=== PATIENT | female | born 1965 | race Caucasian/White ===

== ENCOUNTER → 2016-08-02 | Outpatient (REF) | payer OTHER | LOC: M SFHCLERA 16:08 | PROVIDERS: ATTEND Nurse Practitioner Family | DX: J02.9 Acute pharyngitis, unspecified (principal) ==

== ENCOUNTER → 2017-02-22 | Outpatient (REF) | payer OTHER ==
[2017-02-22 16:51] LABS: ANION GAP 7 MEQ/L (8-16); BLOOD UREA NITROGEN 12 MG/DL (7-18); CALCIUM LEVEL 8.5 MG/DL (8.5-10.1); CARBON DIOXIDE LEVEL 26 MEQ/L (21-32); CHLORIDE LEVEL 103 MEQ/L (98-107); CHOLESTEROL LEVEL 175 MG/DL (<200); GLOMERULAR FILTRATION RATE > 60.0 (>51); GLUCOSE, FASTING 99 MG/DL (70-105); SODIUM LEVEL 136 MEQ/L (136-145); TRIGLYCERIDES LEVEL 53 MG/DL (<150)
== END ==
LOC: M LABDRAW1 16:01
PROVIDERS: ATTEND Family Medicine
DX: Z00.00 Encounter for general adult medical examination without abnormal findings (principal)

== ENCOUNTER → 2017-02-22 | Outpatient (CLI) | payer OTHER ==
--- NOTE | 2017-02-27 19:39 | REPMRS ---
Patient History The patient states she has not had a clinical breast exam in over a year. Family history of breast cancer in mother at age 50 or over. Digital Woman Screen Mammo: February 22, 2017 - Exam #: [id number] Bilateral CC and MLO view(s) were taken. Technologist: Faustina Infante, Technologist Prior study comparison: 2009, digital bilateral screening mammo, performed at [facility]. 2007, digital bilateral screening mammo, performed at [facility]. FINDINGS: The breast tissue is heterogeneously dense. This may lower the sensitivity of mammography. There has been no change in the appearance of the mammogram from the prior studies. There is a moderate amount of residual fibroglandular tissue which is fairly symmetric. There is no interval development of dominant mass, architectural distortion, or clustered microcalcification typical of malignancy. There is a benign appearing intramammary node in the upper outer quadrant of the left breast. Scattered lymph nodes are seen in the right axilla. No significant changes when compared with prior studies. ASSESSMENT: BI-RADS/ACR category 2 mammogram. Benign finding(s). Recommendation Routine screening mammogram in 1 year (for women over age 40). This mammogram was interpreted with the aid of an FDA-approved computer-aided dectection system. A. Negative x-ray reports should not delay biopsy if a dominant or clinically suspicious mass is present. B. Four to eight percent of cancers are not identified by mammography. C. Adenosis and dense breast may obscure an underlying neoplasm. Electronically Signed By: Mario Michel MD 02/27/17 [id number]
== END ==
LOC: M WHC 13:33
PROVIDERS: ATTEND Family Medicine
DX: N63 Unspecified lump in breast (principal); Z80.3 Family history of malignant neoplasm of breast

== ENCOUNTER → 2017-02-22 | Outpatient (REF) | payer OTHER ==
[2017-02-22 16:56] LABS: FREE T4 1.22 NG/DL (0.76-1.46)
== END ==
LOC: M LABDRAW1 16:02
PROVIDERS: ATTEND Internal Medicine
DX: E05.00 Thyrotoxicosis with diffuse goiter without thyrotoxic crisis or storm (principal)

== ENCOUNTER → 2017-09-29 | Outpatient (CLI) | payer OTHER ==
[2017-09-29 20:27] LABS: FREE T4 1.88 NG/DL (0.76-1.46); THYROID STIMULATING HORMONE < 0.005 uIU/ML (0.358-3.740)
[2017-09-29 20:28] LABS: TOTAL 25(OH) VITAMIN D 14.6 NG/ML (30.0-100.0)
[2017-09-29 20:29] LABS: TOTAL T3 171.7 NG/DL (60.0-181.0)
== END ==
LOC: M LRY 14:56
DX: E05.00 Thyrotoxicosis with diffuse goiter without thyrotoxic crisis or storm (principal); E04.1 Nontoxic single thyroid nodule; E55.9 Vitamin D deficiency, unspecified
CPT/HCPCS: 84443

== ENCOUNTER → 2017-11-20 | Outpatient (REF) | payer OTHER ==
[2017-11-21 12:36] LABS: ALBUMIN 3.7 GM/DL (3.2-5.2); ALBUMIN/GLOBULIN RATIO 1.16 (1.00-1.93); ALKALINE PHOSPHATASE 83 U/L (45-117); ALT/SGPT 18 U/L (12-78); ANION GAP 6 MEQ/L (8-16); AST/SGOT 10 U/L (7-37); BILIRUBIN,TOTAL 0.2 MG/DL (0.2-1.0); BLOOD UREA NITROGEN 14 MG/DL (7-18); CALCIUM LEVEL 8.8 MG/DL (8.5-10.1); CARBON DIOXIDE LEVEL 29 MEQ/L (21-32); CHLORIDE LEVEL 108 MEQ/L (98-107); CREATININE FOR GFR 0.77 MG/DL (0.55-1.30); GLOMERULAR FILTRATION RATE > 60.0 (>51); GLUCOSE, FASTING 83 MG/DL (70-100); POTASSIUM SERUM 4.3 MEQ/L (3.5-5.1); SODIUM LEVEL 143 MEQ/L (136-145); TOTAL PROTEIN 6.9 GM/DL (6.4-8.2)
== END ==
LOC: M LABDRAWC 11-21 11:49
DX: E05.00 Thyrotoxicosis with diffuse goiter without thyrotoxic crisis or storm (principal)
CPT/HCPCS: 80053

== ENCOUNTER → 2017-11-27 | Outpatient (CLI) | payer OTHER | LOC: M LRY 15:18 | DX: E05.00 Thyrotoxicosis with diffuse goiter without thyrotoxic crisis or storm (principal) ==

== ENCOUNTER → 2017-11-28 | Outpatient (REF) | payer OTHER ==
[2017-11-28 16:58] LABS: ALBUMIN 4.1 GM/DL (3.2-5.2); ALBUMIN/GLOBULIN RATIO 1.21 (1.00-1.93); ALKALINE PHOSPHATASE 78 U/L (45-117); ALT/SGPT 23 U/L (12-78); ANION GAP 3 MEQ/L (8-16); AST/SGOT 9 U/L (7-37); BILIRUBIN,TOTAL 0.6 MG/DL (0.2-1.0); BLOOD UREA NITROGEN 14 MG/DL (7-18); CALCIUM LEVEL 9.1 MG/DL (8.5-10.1); CARBON DIOXIDE LEVEL 33 MEQ/L (21-32); CHLORIDE LEVEL 103 MEQ/L (98-107); GLOMERULAR FILTRATION RATE > 60.0 (>51); GLUCOSE, FASTING 86 MG/DL (70-100); POTASSIUM SERUM 4.7 MEQ/L (3.5-5.1); SODIUM LEVEL 139 MEQ/L (136-145); TOTAL PROTEIN 7.5 GM/DL (6.4-8.2)
== END ==
LOC: M LAB REF 16:39
DX: E05.00 Thyrotoxicosis with diffuse goiter without thyrotoxic crisis or storm (principal)

== ENCOUNTER → 2017-12-11 | Outpatient (REF) | payer OTHER ==
[2017-12-12 11:53] LABS: ALBUMIN 3.8 GM/DL (3.2-5.2); ALBUMIN/GLOBULIN RATIO 1.23 (1.00-1.93); ALKALINE PHOSPHATASE 71 U/L (45-117); ALT/SGPT 20 U/L (12-78); ANION GAP 7 MEQ/L (8-16); AST/SGOT 8 U/L (7-37); BILIRUBIN,TOTAL 0.5 MG/DL (0.2-1.0); BLOOD UREA NITROGEN 11 MG/DL (7-18); CALCIUM LEVEL 8.4 MG/DL (8.5-10.1); CARBON DIOXIDE LEVEL 30 MEQ/L (21-32); CHLORIDE LEVEL 106 MEQ/L (98-107); GLOMERULAR FILTRATION RATE > 60.0 (>51); GLUCOSE, FASTING 88 MG/DL (70-100); POTASSIUM SERUM 3.9 MEQ/L (3.5-5.1); SODIUM LEVEL 143 MEQ/L (136-145); TOTAL PROTEIN 6.9 GM/DL (6.4-8.2)
== END ==
LOC: M LABDRAWC 10:59
DX: E05.00 Thyrotoxicosis with diffuse goiter without thyrotoxic crisis or storm (principal)

== ENCOUNTER → 2017-12-18 | Outpatient (CLI) | payer OTHER ==
[2017-12-18 20:37] LABS: ALBUMIN/GLOBULIN RATIO 1.29 (1.00-1.93); ALKALINE PHOSPHATASE 76 U/L (45-117); ALT/SGPT 26 U/L (12-78); AST/SGOT 9 U/L (7-37); BILIRUBIN,DIRECT 0.1 MG/DL (0.0-0.2); BILIRUBIN,TOTAL 0.4 MG/DL (0.2-1.0); TOTAL PROTEIN 7.1 GM/DL (6.4-8.2)
== END ==
LOC: M LRY 15:51
DX: E05.90 Thyrotoxicosis, unspecified without thyrotoxic crisis or storm (principal)

== ENCOUNTER → 2018-01-16 | Outpatient (CLI) | payer OTHER ==
[2018-01-16 20:49] LABS: TOTAL 25(OH) VITAMIN D 21.9 NG/ML (30.0-100.0)
[2018-01-24 00:06] LABS: ARSENIC BLOOD 5 ug/L (2-23); GLUTATHIONE QT 255 ug/mL (176-323); LEAD BLOOD None Detected ug/dL (0-19); MERCURY BLOOD 2.2 ug/L (0.0-14.9)
[2018-01-24 00:06] LABS: ALUMINUM LEVEL None Detected ug/L (0-9)
== END ==
LOC: M LRY 15:33
DX: F43.12 Post-traumatic stress disorder, chronic (principal); E05.41 Thyrotoxicosis factitia with thyrotoxic crisis or storm; F31.2 Bipolar disorder, current episode manic severe with psychotic features
CPT/HCPCS: 83655

== ENCOUNTER → 2018-05-01 | Outpatient (CLI) | payer OTHER ==
[2018-05-01 18:24] LABS: FREE T3 2.9 PG/ML (2.2-4.0); FREE T4 1.01 NG/DL (0.76-1.46)
== END ==
LOC: M LAB 16:36
DX: E05.00 Thyrotoxicosis with diffuse goiter without thyrotoxic crisis or storm (principal)
CPT/HCPCS: 84443

== ENCOUNTER 2018-08-31 16:13 | Emergency (ER) | payer OTHER ==
[2018-08-31 16:59] LABS: BASO % 0.3 % (0.0-1.0); EOS # 0.2 10^3/uL (0.0-0.50); EOS % 1.8 % (0.0-3.0); HEMATOCRIT 39.1 % (36.0-47.0); HEMOGLOBIN 13.4 g/dl (12.0-15.5); LYMPH # 2.2 10^3/uL (1.5-4.5); LYMPH % 18.6 % (24.0-44.0); MEAN CORPUSCULAR HEMOGLOBIN 31.7 pg (27.0-33.0); MEAN CORPUSCULAR HGB CONC 34.3 g/dl (32.0-36.5); MEAN CORPUSCULAR VOLUME 92.4 fl (80.0-96.0); MONO % 8.7 % (0.0-5.0); NEUTROPHILS # 8.4 10^3/uL (1.8-7.7); NEUTROPHILS % 70.2 % (36.0-66.0); PLATELET COUNT, AUTOMATED 264 10^3/uL (150-450); RED BLOOD COUNT 4.23 10^6/uL (4.00-5.40)
[2018-08-31] MEDS ORDERED: METH25TAB PO (17:01)
[2018-08-31] MEDS ORDERED: LEXA1TAB PO (17:02)
[2018-08-31] MEDS ORDERED: IBUP-1022 PO (17:03)
--- NOTE | 2018-08-31 17:07 | REP ---
Clinical: Chest pain . Comparison: None . Findings: The mediastinum and cardiac silhouette are stable and within normal limits for portable technique. The lung jensen are clear without acute consolidation, effusion, or pneumothorax. Skeletal structures are intact. Impression: No acute cardiopulmonary process appreciated. Electronically Signed by Saad Gold MD 08/31/2018 05:00 P
[2018-08-31 17:25] LABS: ALBUMIN 3.9 GM/DL (3.2-5.2); ALT/SGPT 24 U/L (12-78); BILIRUBIN,DIRECT 0.1 MG/DL (0.0-0.2); BILIRUBIN,TOTAL 0.3 MG/DL (0.2-1.0); BLOOD UREA NITROGEN 15 MG/DL (7-18); CALCIUM LEVEL 8.6 MG/DL (8.5-10.1); CARBON DIOXIDE LEVEL 27 MEQ/L (21-32); CHLORIDE LEVEL 103 MEQ/L (98-107); CPK CREATINE PHOSPHOKINASE 56 U/L (26-192); CREATININE FOR GFR 0.79 MG/DL (0.55-1.30); FREE T4 0.94 NG/DL (0.76-1.46); GLOMERULAR FILTRATION RATE > 60.0 (>51); GLUCOSE, FASTING 100 MG/DL (70-100); MAGNESIUM LEVEL 2.3 MG/DL (1.8-2.4); MB/CK RELATIVE INDEX 2.14 (< OR =4); NT-PRO BNP 66 PG/ML (<125); PHOSPHORUS LEVEL 2.8 MG/DL (2.5-4.9); POTASSIUM SERUM 3.7 MEQ/L (3.5-5.1); SODIUM LEVEL 139 MEQ/L (136-145); TOTAL PROTEIN 6.7 GM/DL (6.4-8.2); TROPONIN I < 0.02 NG/ML (< 0.10)
[2018-08-31 17:28] LABS: INR 0.92; PROTHROMBIN TIME 12.5 SECONDS (12.1-14.4)
[2018-08-31 18:13] VITALS: BP 131/71
--- NOTE | 2018-09-01 08:44 | ECGEPIP ---
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
== END 2018-08-31 19:10 | disposition home or self-care (01) ==
LOC: M ED 16:13
DX: I49.3 Ventricular premature depolarization (principal); R00.2 Palpitations; E05.00 Thyrotoxicosis with diffuse goiter without thyrotoxic crisis or storm; E04.1 Nontoxic single thyroid nodule; Z79.899 Other long term (current) drug therapy

== ENCOUNTER → 2018-09-14 | Outpatient (CLI) | payer OTHER ==
[~2018-09-14] MED LIST: IBUP-1022 PO; LEXA1TAB PO; METH25TAB PO
[2018-09-14 20:49] LABS: FREE T4 0.89 NG/DL (0.76-1.46); THYROID STIMULATING HORMONE 2.92 uIU/ML (0.358-3.740)
[2018-09-14 20:53] LABS: TOTAL 25(OH) VITAMIN D 25.2 NG/ML (30.0-100.0)
== END ==
LOC: M LRY 16:15
PROVIDERS: ATTEND Internal Medicine
DX: E05.90 Thyrotoxicosis, unspecified without thyrotoxic crisis or storm (principal); E55.9 Vitamin D deficiency, unspecified

== ENCOUNTER 2018-10-11 14:26 | Inpatient (IN) | payer OTHER ==
[~2018-10-11] VITALS: Ht 165.1 cm; Wt 83.3 kg
[2018-10-11] MEDS ORDERED: RITU10VLL IV (14:42)
[2018-10-11] MEDS ORDERED: VITA200015 PO (14:42)
[2018-10-11 15:21] LABS: BASO % 0.2 % (0.0-1.0); EOS # 0.2 10^3/uL (0.0-0.50); EOS % 2.2 % (0.0-3.0); HEMATOCRIT 37.1 % (36.0-47.0); HEMOGLOBIN 12.7 g/dl (12.0-15.5); LYMPH # 1.4 10^3/uL (1.5-4.5); MEAN CORPUSCULAR HEMOGLOBIN 31.9 pg (27.0-33.0); MEAN CORPUSCULAR HGB CONC 34.2 g/dl (32.0-36.5); MEAN CORPUSCULAR VOLUME 93.2 fl (80.0-96.0); MONO # 0.9 10^3/uL (0.0-0.8); MONO % 8.6 % (0.0-5.0); NEUTROPHILS # 7.9 10^3/uL (1.8-7.7); NEUTROPHILS % 75.8 % (36.0-66.0); PLATELET COUNT, AUTOMATED 249 10^3/uL (150-450); RED BLOOD COUNT 3.98 10^6/uL (4.00-5.40); WHITE BLOOD COUNT 10.5 10^3/uL (4.0-10.0)
[2018-10-11 15:51] LABS: BLOOD UREA NITROGEN 16 MG/DL (7-18); CALCIUM LEVEL 8.2 MG/DL (8.5-10.1); CARBON DIOXIDE LEVEL 28 MEQ/L (21-32); CHLORIDE LEVEL 107 MEQ/L (98-107); CK-MB VALUE MASS < 1.0 NG/ML (<3.6); CPK CREATINE PHOSPHOKINASE 86 U/L (26-192); CREATININE FOR GFR 0.77 MG/DL (0.55-1.30); GLOMERULAR FILTRATION RATE > 60.0 (>51); GLUCOSE, FASTING 93 MG/DL (70-100); MB/CK RELATIVE INDEX 1.16 (< OR =4); POTASSIUM SERUM 4.1 MEQ/L (3.5-5.1); SODIUM LEVEL 140 MEQ/L (136-145); TROPONIN I < 0.02 NG/ML (< 0.10)
[2018-10-11] MEDS ORDERED: ISOVUE-370 76% 125ML VIAL (Q9967 PER ML) As Ordered ONE (15:56)
--- NOTE | 2018-10-11 16:19 | REP ---
CT Head without contrast HISTORY: Loss of consciousness COMPARISON: None There is no intraparenchymal hemorrhage, acute infarct, mass or midline shift. The ventricular system is normal in appearance. There is no extra cerebral collection. There is no fracture. The visualized sinuses are clear. IMPRESSION: There is no intracranial lesion. Electronically Signed by Emilio Santamaria MD 10/11/2018 04:09 P
[2018-10-11] MEDS ORDERED: ACETAMINOPHEN 325 MG TAB PO ONE (16:30)
--- NOTE | 2018-10-11 18:13 | REPVR ---
EXAM: CT Angiography Head With Contrast EXAM DATE/TIME: 10/11/2018 4:02 PM CLINICAL HISTORY: 53 years old, female; Signs and symptoms; Visual disturbance and other: Loss of consciousness; Diplopia; Additional info: Prolonged loss of consciousness, witnessed, dbl vision TECHNIQUE: Axial computed tomographic angiography images of the head with intravenous contrast using CT angiography protocol. MIP and/or 3D reconstructed images were created and reviewed. COMPARISON: Thyroid, ST head+neck US 03/21/2016 12:44 PM FINDINGS: Right internal carotid artery: Unremarkable. Intracranial segment is patent with no significant stenosis. No aneurysm. Right anterior cerebral artery: Unremarkable. No occlusion or significant stenosis. No aneurysm. Right middle cerebral artery: Unremarkable. No occlusion or significant stenosis. No aneurysm. Right posterior cerebral artery: Unremarkable. No occlusion or significant stenosis. No aneurysm. Right vertebral artery: Unremarkable. No occlusion or significant stenosis. No aneurysm. Left internal carotid artery: Unremarkable. Intracranial segment is patent with no significant stenosis. No aneurysm. Left anterior cerebral artery: Unremarkable. No occlusion or significant stenosis. No aneurysm. Left middle cerebral artery: Unremarkable. No occlusion or significant stenosis. No aneurysm. Left posterior cerebral artery: Unremarkable. No occlusion or significant stenosis. No aneurysm. Left vertebral artery: Unremarkable. No occlusion or significant stenosis. No aneurysm. Basilar artery: Unremarkable. No occlusion or significant stenosis. No aneurysm. Orbits: There is a bilateral proptosis, left greater than right. There is enlargement noted of the extra ocular muscles within both orbits. On the left, there is enlargement of the superior rectus, superior oblique, medial and inferior rectus muscles. Inflammatory changes are noted of the fat surrounding the muscles and including the tendons. On the right there is enlargement of the lateral rectus muscle and medius rectus muscles. There is inflammatory stranding noted within the intraconal retrobulbar fat bilaterally. No evidence of cavernous carotid fistula. IMPRESSION: 1. Normal CTA of the [place]. 2. Normal CT of the vertebrobasilar system. 3. Enlargement of extraocular muscles in both orbits as described above with associated inflammatory change and involvement of the tendinous junctions. Differential diagnostic considerations include orbital myositis/idiopathic orbital inflammatory syndrome and lymphoma. Ophthalmopathy associated with graves disease typically spares the tendons of the extra ocular muscles.Clinical correlation suggested. EXAM: CT Angiography Neck With Contrast EXAM DATE/TIME: 10/11/2018 4:02 PM CLINICAL HISTORY: 53 years old, female; Signs and symptoms; Visual disturbance and other: Loss of consciousness; Diplopia; Additional info: Prolonged loss of consciousness, witnessed, dbl vision TECHNIQUE: Axial computed tomographic angiography images of the neck with intravenous contrast using CT angiography protocol. All CT scans at this facility use at least one of these dose optimization techniques: automated exposure control; mA and/or kV adjustment per patient size (includes targeted exams where dose is matched to clinical indication); or iterative reconstruction. Coronal and sagittal reformatted images were created and reviewed. MIP and 3D reconstructed images were created and reviewed. CONTRAST: Contrast Material: 100 ml of isovue 370; Contrast Route: iv COMPARISON: Thyroid, ST head+neck US 03/21/2016 12:44 PM FINDINGS: VASCULATURE: Right common carotid artery: Normal. No significant stenosis. No dissection or occlusion. Right internal carotid artery: Minimal soft plaque formation within the right proximal internal carotid artery. Right external carotid artery: Normal. No occlusion or significant stenosis. Right vertebral artery: Normal. No significant stenosis. No dissection or occlusion. Left common carotid artery: Normal. No significant stenosis. No dissection or occlusion. Left internal carotid artery: Minimal soft plaque formation in the left proximal internal carotid artery. Left external carotid artery: Normal. No occlusion or significant stenosis. Left vertebral artery: Normal. No significant stenosis. No dissection or occlusion. Other vasculature: No stenosis. No stenosis. NECK: Bones/joints: No acute fracture. Soft tissues: Normal. No significant soft tissue swelling. IMPRESSION: 1. Minimal plaque formation in the cervical carotid arteries. No stenosis. 2. Normal CTA of the vertebral arteries. 3. Reference per NASCET criteria for degree of stenosis: Mild: less than 50% stenosis. Moderate: 50-69% stenosis. Severe: 70-94% stenosis. Near occlusion: 95-99% stenosis. COMMENT: Reference per NASCET criteria for degree of stenosis: Mild: less than 50% stenosis. Moderate: 50-69% stenosis. Severe: 70-94% stenosis. Near occlusion: 95-99% stenosis. Electronically signed by: Pat Knapp On 10/11/2018 18:12:49 PM
[2018-10-11] MEDS ORDERED: IBUPROFEN 600 MG TAB PO ONE (18:30)
--- NOTE | 2018-10-11 19:25 | ECGEPIP ---
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
[2018-10-11] MEDS ORDERED: NS 1,000 ML IV SCH (20:16)
[2018-10-11 20:29] LABS: MAGNESIUM LEVEL 2.3 MG/DL (1.8-2.4)
[2018-10-11] MEDS ORDERED: RITUXIMAB IV SCH (20:30)
[2018-10-11] MEDS ORDERED: PILL CRUSHER/CUTTER 1 EACH XX PRN (20:30)
[2018-10-11 21:55] LABS: APPEARANCE, URINE CLEAR (CLEAR); BACTERIA, URINE AUTO NEGATIVE (NEGATIVE); BILIRUBIN, URINE AUTO NEGATIVE (NEGATIVE); BLOOD, URINE BLOOD 2+ (NEGATIVE); COLOR, URINE YELLOW (YELLOW); GLUCOSE, URINE (UA) AUTO NEGATIVE (NEGATIVE); KETONE, URINE AUTO NEGATIVE (NEGATIVE); LEUKOCYTE ESTERASE, URINE AUTO NEGATIVE (NEGATIVE); NITRITE, URINE AUTO NEGATIVE (NEGATIVE); PROTEIN, URINE AUTO NEGATIVE (NEGATIVE); RBC, URINE AUTO 2 /HPF (0-3); SQUAMOUS EPITHELIAL CELL UR AU 2 /HPF (0-6); UROBILINOGEN, URINE AUTO 0.2 mg/dL (0.0-2.0); WBC, URINE AUTO 2 /HPF (0-3)
[2018-10-11 21:56] LABS: SPECIFIC GRAVITY URINE AUTO >1.060 (1.002-1.035)
--- NOTE | 2018-10-11 22:12 | HPE ---
DATE OF ADMISSION: 10/11/2018 CHIEF COMPLAINT: Syncopal episode. HISTORY OF PRESENT ILLNESS: The patient is a 53-year-old female significant past medical history of Grave's disease with severe exophthalmos, recently finished steroid therapy and Rituxan for the exophthalmos, seeing a surgeon for possible surgery. She follows with [facility] in [place]. She also has a history of depression, anxiety. 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 Patient stated that she initially felt dizzy. She sat down, when she got up again she had a syncopal episode which was caught on camera. As per her account, she was out for 15 minutes. No jerky type movements. No tongue biting. No urinary incontinence. She denies any chest pain, palpitations or shortness of breath prior to the event. She did feel dizzy, not hypoglycemic. She was hydrated throughout the day. Denies any cough, urinary symptoms, abdominal pain, constipation or diarrhea. Exophthalmos very pronounced during the examination. She has no focal neurological deficits. No weakness, numbness or paresthesias. PAST MEDICAL HISTORY: See HPI. PAST SURGICAL HISTORY: Ankle surgery. ALLERGIES: No known drug allergies. HOME MEDICATIONS: - methimazole - Rituxan infusion - Effexor SOCIAL HISTORY: She denies tobacco, alcohol or illicit drug use. FAMILY HISTORY: Noncontributory REVIEW OF SYSTEMS: A 12 point review of systems was completed all of which were negative except those listed in the HPI. VITALS ON ADMISSION: Temperature 98, pulse 64, respirations 20, blood pressure 127/65, saturating at 99% on room air. PHYSICAL EXAMINATION: GENERAL: She is well-nourished, in no apparent distress. HEAD: Normocephalic, atraumatic. EYES: Extraocular movements are intact. She has profound exophthalmos. LUNGS: Clear to auscultation. No crackles, wheezes, rales or rhonchi. CARDIOVASCULAR: Regular rate and rhythm, normal S1, S2. No murmurs, gallops or rubs. ABDOMEN: Soft, nontender, nondistended. Positive bowel sounds. No rebound, no guarding. EXTREMITIES: No pitting edema or calf tenderness. SKIN: Intact. No rashes, lesions or breakdowns. NEUROLOGICAL: Alert and oriented times three. No focal deficits appreciated on exam. LABS DONE IN THE ER: White count 10, hemoglobin and hematocrit 12/37, platelet count of 249. Coags: D-dimer 46. Chemistry: BUN and creatinine of 16/0.7. Troponins are negative. TSH within normal limits. Potassium within normal limits. IMAGING COMPLETED IN THE ER: CT of the neck shows bilateral proptosis, left greater than right. On the left there is enlargement of the superior rectus, the superior oblique, medial and inferior rectus muscles. Inflammatory changes are noted on the fat surrounding the muscles including the tendons. On the right there is enlargement of the lateral rectus muscle and medius rectus muscles. There is inflammatory stranding noted within the intraconal retrobulbar fat bilaterally. No evidence of cavernous carotid fistula. Normal CT of the [place]. Normal CT of the vertebrobasilar system. CT head noncontrast shows no intracranial lesion. ASSESSMENT AND PLAN: 1. Syncope. CT of the neck already ruled out vertebrobasilar insufficiency. Will rule out structural heart disease with an echo. Will trend troponins and EKGs to rule out ACS. Will keep on telemetry to rule out arhythmia. Will check all electrolytes. Will check orthostatics, this is all possibly secondary to vasovagal. Unclear if this has something to do with the profound exophthalmos. Can consider endocrine consult. Patient was recently being seen by Dr. Brice for symptoms of bradycardia, heart rate in the 40s with dizziness. Her methimazole was subsequently decreased after this. She had to Holter monitor for [address] Brice in the a.m. for potential results of this Holter monitor. 2. For Graves disease, continue methimazole, TSH within normal limits. Will also send a free T4. 3. Depression. Continue Effexor. 4. DVT prophylaxis. Heparin subcutaneous. 5. GI prophylaxis. Not indicated. Diet: Regular.
[2018-10-12] MEDS ORDERED: MECLIZINE 12.5 MG TAB PO ONE (01:00)
[2018-10-12 05:55] LABS: HEMATOCRIT 37.3 % (36.0-47.0); HEMOGLOBIN 12.3 g/dl (12.0-15.5); MEAN CORPUSCULAR HEMOGLOBIN 30.8 pg (27.0-33.0); MEAN CORPUSCULAR VOLUME 93.3 fl (80.0-96.0); PLATELET COUNT, AUTOMATED 247 10^3/uL (150-450); WHITE BLOOD COUNT 8.7 10^3/uL (4.0-10.0)
[2018-10-12] MEDS ORDERED: IBUPROFEN 600 MG TAB PO ONE (06:00)
[2018-10-12] MEDS ORDERED: HEPARIN SOD (PORCINE) 5000 UNITS/ML VIAL SC SCH (06:00)
[2018-10-12 06:16] LABS: BLOOD UREA NITROGEN 17 MG/DL (7-18); CALCIUM LEVEL 7.5 MG/DL (8.5-10.1); CARBON DIOXIDE LEVEL 25 MEQ/L (21-32); CHLORIDE LEVEL 112 MEQ/L (98-107); GLOMERULAR FILTRATION RATE > 60.0 (>51); GLUCOSE, FASTING 95 MG/DL (70-100); SODIUM LEVEL 142 MEQ/L (136-145)
[2018-10-12 06:25] LABS: TROPONIN I < 0.02 NG/ML (< 0.10)
--- NOTE | 2018-10-12 07:53 | REPVR ---
EXAM: CT Angiography Head With Contrast EXAM DATE/TIME: 10/11/2018 4:02 PM CLINICAL HISTORY: 53 years old, female; Signs and symptoms; Visual disturbance and other: Loss of consciousness; Diplopia; Additional info: Prolonged loss of consciousness, witnessed, dbl vision TECHNIQUE: Axial computed tomographic angiography images of the head with intravenous contrast using CT angiography protocol. All CT scans at this facility use at least one of these dose optimization techniques: automated exposure control; mA and/or kV adjustment per patient size (includes targeted exams where dose is matched to clinical indication); or iterative reconstruction. Coronal and sagittal reformatted images were created and reviewed. MIP and 3D reconstructed images were created and reviewed. CONTRAST: Contrast Material: 100 ml of isovue 370; Contrast Route: iv COMPARISON: Thyroid, ST head+neck US 03/21/2016 12:44 PM FINDINGS: Right internal carotid artery: Unremarkable. Intracranial segment is patent with no significant stenosis. No aneurysm. Right anterior cerebral artery: Unremarkable. No occlusion or significant stenosis. No aneurysm. Right middle cerebral artery: Unremarkable. No occlusion or significant stenosis. No aneurysm. Right posterior cerebral artery: Unremarkable. No occlusion or significant stenosis. No aneurysm. Right vertebral artery: Unremarkable. No occlusion or significant stenosis. No aneurysm. Left internal carotid artery: Unremarkable. Intracranial segment is patent with no significant stenosis. No aneurysm. Left anterior cerebral artery: Unremarkable. No occlusion or significant stenosis. No aneurysm. Left middle cerebral artery: Unremarkable. No occlusion or significant stenosis. No aneurysm. Left posterior cerebral artery: Unremarkable. No occlusion or significant stenosis. No aneurysm. Left vertebral artery: Unremarkable. No occlusion or significant stenosis. No aneurysm. Basilar artery: Unremarkable. No occlusion or significant stenosis. No aneurysm. HEAD: Orbits: There is bilateral proptosis. There is significant thickening of the inferior medial and superior rectus muscles on the left and significant thickening of the inferior and superior rectus muscle on the right. IMPRESSION: 1. No appreciable disease seen in the intracerebral circulation. 2. Bilateral proptosis and diffuse enlargement of the extraocular muscle. The differential diagnoses include ophthalmopathy associated with Graves' disease, myositis and infiltrative process such as lymphoma. Correlate clinically Electronically signed by: Isidro Aburto On 10/12/2018 07:53:03 AM
[2018-10-12] MEDS: VITAMIN D 1,000 INTERNATIONAL UNITS TABLET PO SCH (08:59)
[2018-10-12 09:00] VITALS: BP_SYST 112; BP_SYST 132; BP_SYST 137; BP_DIAS 68; BP_DIAS 73; BP_DIAS 81
[2018-10-12] MEDS: ESCITALOPRAM OXALATE 10 MG TAB (LEXAPRO) PO SCH (09:00)
[2018-10-12] MEDS ORDERED: LORazepam 2 MG/ML VIAL (J2060) IV STA (12:46)
[2018-10-12 16:05] VITALS: BP 128/82
--- NOTE | 2018-10-12 17:15 | REP ---
MR BRAIN WITHOUT CONTRAST: HISTORY: Syncope. COMPARISON: CT 10/11/2018 There are no areas of abnormal signal intensity in the brain. There is no intraparenchymal hemorrhage, infarct, mass or midline shift. The ventricular system is normal in appearance. There is no extracerebral collection. This enlargement of the bellies of several extraocular muscles in the orbits. The sinuses are clear. IMPRESSION:1. There is no intracranial lesion. 2. There is enlargement of the bellies of several extraocular muscles in the orbits. CT or MR of the orbits may be helpful for further evaluation. Electronically Signed by Emilio Santamaria MD 10/12/2018 05:26 P
[2018-10-12] MEDS: MECLIZINE 25 MG TABLET PO PRN (18:21)
[2018-10-12] MEDS: IBUPROFEN 600 MG TAB PO PRN (18:22)
--- NOTE | 2018-10-12 19:28 | IPN ---
DATE: 10/12/2018 SUBJECTIVE: The patient is seen and examined in the room today. The patient stated that prior to admission she had some dizziness. 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 The patient stated that her dizziness occurs during rest, is not exacerbated or triggered by any type of head movements. The patient does not really know what makes the dizziness worse or better. The patient is also involved with a specialist in [place] for her Grave's disease with severe exophthalmus. The patient had scheduled surgery on 10/16/2018 for eyelid repair. The patient stated that she feels significant pressure and discomfort behind the left eye. The patient does have a history of cardiac arrhythmia that occurred after her infusion in outpatient setting. That was the reason the patient was placed on a Holter monitor. This morning, while the patient was getting ready for the MRI scan, the patient could not tolerate it due to claustrophobia. Ativan was given to the patient and the patient stated that the medication has helped her significantly. She could tolerate the scan. PHYSICAL EXAMINATION: VITAL SIGNS: Temperature 97.9, pulse 70, respirations 16, blood pressure 110/60, pulse oximetry 96% on room air. GENERAL: Mild distress secondary to persistent eye discomfort, most significant on the left side. Alert, awake, oriented. HEENT: Severe exophthalmus, especially the left eye. Tenderness to palpation around the eyelid. CARDIOVASCULAR: Regular rate. Positive S1, S2. ABDOMEN: Soft, nontender, nondistended. Bowel sounds present. EXTREMITIES: No edema. LABORATORY DATA: WBC 8.7, hemoglobin 12.3, hematocrit 37.3, platelet count is 247. Sodium is 142, potassium 4, chloride 112, carbon dioxide 25, BUN 17, creatinine 0.7, GFR greater than 60, fasting glucose 95, calcium is 7.5. IMAGING STUDIES: MRI of the brain without contrast demonstrated no intracranial lesion, enlargement of the belly of several extraocular muscles in the orbits. ASSESSMENT AND PLAN: 1. Syncope. The patient will continue with syncope workup. The patient had an echocardiogram approximately [address] Brice's office and I have discussed the findings with Dr. Brice. The patient did not demonstrate any significant abnormality from the echocardiogram. The patient also had a Holter monitor that detected intermittent premature ventricular contractions (PVCs). There is no significant cardiac arrhythmia noted. The patient is not orthostatic. The patient's medications were reviewed. Trial of meclizine. Followup with physical therapy (PT). 2. Grave's disease with severe exophthalmus. The patient is currently on methimazole in a reduced dose. The patient does have a history of significant bradycardia when the patient is on the medication. Continue to monitor the patient. The patient has a followup with party director, mammography technologist, and also surgeon in [place] for her Grave's disease. The patient has scheduled reconstruction surgery on 10/16/2018. Due to the significant symptoms of bilateral eyes, especially the left worse than the right, sorter operator, Dr. Baca, consulted. We will try to get in touch with the patient's reconstructive surgeon, Dr. Torres, in [place]. Office number is [phone]. At baseline, the patient is getting Rituxan. The patient receives that medication once monthly. The patient received a dose approximately 1 week ago. 3. Anxiety/depression. Continue Lexapro. 4. Deep vein thrombosis (DVT) prophylaxis. On knee high compressions.
[2018-10-12] MEDS ORDERED: traMADol 50 MG TAB PO ONE (21:00)
[2018-10-12 22:00] VITALS: BP 120/63
[2018-10-13] MEDS: IBUPROFEN 600 MG TAB PO PRN (05:36)
[2018-10-13 06:00] VITALS: BP 102/60
[2018-10-13] MEDS: MECLIZINE 25 MG TABLET PO PRN (06:08)
[2018-10-13 06:57] LABS: HEMATOCRIT 36.2 % (36.0-47.0); HEMOGLOBIN 12.3 g/dl (12.0-15.5); MEAN CORPUSCULAR HEMOGLOBIN 31.5 pg (27.0-33.0); MEAN CORPUSCULAR VOLUME 92.6 fl (80.0-96.0); PLATELET COUNT, AUTOMATED 248 10^3/uL (150-450); RED BLOOD COUNT 3.91 10^6/uL (4.00-5.40); WHITE BLOOD COUNT 7.1 10^3/uL (4.0-10.0)
[2018-10-13 07:25] LABS: BLOOD UREA NITROGEN 17 MG/DL (7-18); CALCIUM LEVEL 7.9 MG/DL (8.5-10.1); CARBON DIOXIDE LEVEL 27 MEQ/L (21-32); CHLORIDE LEVEL 109 MEQ/L (98-107); CREATININE FOR GFR 0.75 MG/DL (0.55-1.30); GLOMERULAR FILTRATION RATE > 60.0 (>51); GLUCOSE, FASTING 87 MG/DL (70-100); POTASSIUM SERUM 4.3 MEQ/L (3.5-5.1); SODIUM LEVEL 141 MEQ/L (136-145)
[2018-10-13] MEDS ORDERED: TRAZ-160 PO (10:20)
[2018-10-13] MEDS ORDERED: MECL-68 PO ×2 (10:20→10:25)
[2018-10-13] MEDS ORDERED: IBUP-1022 PO ×2 (10:20→10:25)
[2018-10-13] MEDS ORDERED: TRAM50TA2 PO (10:25)
[2018-10-13] MEDS: ESCITALOPRAM OXALATE 10 MG TAB (LEXAPRO) PO SCH (10:31)
[2018-10-13] MEDS: VITAMIN D 1,000 INTERNATIONAL UNITS TABLET PO SCH (10:31)
[2018-10-13] MEDS ORDERED: LORazepam 2 MG/ML VIAL (J2060) IV ONE (11:00)
[2018-10-13] MEDS ORDERED: PROHANCE 279.3MG/ML 15ML VIAL (A9576) As Ordered ONE (12:17)
[2018-10-13] MEDS ORDERED: PROHANCE 279.3MG/ML 5ML VIAL (A9576) As Ordered ONE (12:17)
--- NOTE | 2018-10-13 13:29 | ECGEPIP ---
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
[2018-10-13 14:00] VITALS: BP 117/68
--- NOTE | 2018-10-13 15:01 | REP ---
MR ORBITS WITHOUT AND WITH CONTRAST: HISTORY: Enlarged extraocular muscles. CONTRAST: ProHance 15 mL. There is enlargement of the bellies of the superior, medial, inferior, and lateral rectus muscles and the left superior oblique muscle. There is heterogenous enhancement of the left medial rectus muscle. There is minimal compression of the left optic nerve in the left orbital apex. The right optic nerve is normal in appearance. There is bilateral proptosis. There is an increase in the amount of intraorbital fat. The pituitary gland, optic chiasm, cavernous sinuses and hypothalamus are normal in appearance. The visualized sinuses are clear. 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 Electronically Signed by Emilio Santamaria MD 10/13/2018 03:07 P
--- NOTE | 2018-10-15 06:54 | DSES ---
DATE OF ADMISSION: 10/11/2018 DATE OF DISCHARGE: 10/13/2018 PRIMARY CARE PROVIDER: Lucia Ochoa MD CONSULTANTS: Ophthalmology. DISCHARGE DIAGNOSES: 1. Syncope. 2. Graves disease with severe exophthalmos. 3. Anxiety/depression. HOSPITALIZATION COURSE: The patient is a 53-year-old female who presented to [facility] on 10/11/2018 after a syncopal episode. Syncopal episode was recorded on the school camera. After the syncopal episode, emergency medical service (EMS) was called and patient was brought to [facility] for a syncope workup. Patient admitted under hospitalist service. Immediate diagnostic workup initiated. Patient had a recent Holter monitor placement by her integration developer, and Dr. Brice is contacted with regard to her outpatient echocardiogram and Holter monitor. The results were negative. Holter monitor was removed before the syncopal episode. Echocardiogram was normal. All of patient's orthostatics were negative. Patient had a CT scan and MRI performed. Findings were significant for her extraocular muscle abnormality from her Graves disease. During the admission, patient presented significant extraocular motor abnormality from her Graves disease. Driver'S Education Instructor consulted. Patient was noted to have no event noted on the cardiac telemetry. Patient was evaluated by physical therapy, and patient is determined stable for discharge and case was discussed with the integration developer, Dr. Brice, prior to discharge. Patient is recommended to follow with her primary care provider in 1-2 weeks. Patient had a scheduled appointment for her surgeon on 10/16/2018 in [place] with regard to her severe exophthalmos. Patient should continue to follow with her web sizer and pneumatic jack operator in [place]. Patient is recommended to followup with Dr. Brice within 1 week after discharge. Patient will benefit from the outpatient referral for electrophysiology study. VITAL SIGNS ON DAY OF DISCHARGE: Oral temperature 98.3, pulse 68, respirations 17, blood pressure 117/68, pulse oximetry 98% in room air. LABORATORY DATA: WBC is 7.1, hemoglobin 12.3, hematocrit 36.2, platelet count is 248. Sodium is 141, potassium 4.3, chloride is 109, carbon dioxide 27, BUN is 17, creatinine is 0.75, GFR greater than 60, fasting glucose is 87, calcium is 7.9. Urinalysis negative. IMAGING STUDIES: A CT angiogram of the neck on 10/11/2018 demonstrated normal CTA of the [place] of [place]. Normal CT of the vertebrobasilar system. Enlargement of extraocular muscles in both orbits. Minimal plaque formation in the cervical carotid arteries. No stenosis. Normal CTA of the vertebral arteries. CT head without contrast on 10/11/2018 showed no intracranial lesions. CT angiogram of the head on 10/11/2018 demonstrated no appreciable disease seen in the intracerebral circulation. Bilateral proptosis and diffuse enlargement of the extraocular muscle. MR of the brain without contrast on 10/12/2018 showed no intracranial lesion. Enlargement of the belly of several extraocular muscles in the orbits. MR of the orbits, face, and neck without contrast on 10/13/2018 showed enlargement of the belly of the superior, medial, inferior, and lateral rectus muscles and the left superior oblique muscle. There is a heterogenous enhancement of the left medial rectus muscle. Minimal compression of the left orbit nerve in the left orbital apex. Bilateral proptosis. DISCHARGE MEDICATION: - ibuprofen 600 mg by mouth every 6 hours as needed - meclizine 25 mg by mouth every 8 hours as needed - tramadol 50 mg by mouth twice a day as needed for 1-day supply - vitamin D 2000 units by mouth daily - Lexapro 10 mg by mouth daily - methimazole 2.5 mg by mouth daily - Rituxan 1000 mg intravenous (IV) as instructed DISCHARGE INSTRUCTION: Discontinue line. Discharge home. Activity as tolerated. Diet as tolerated. Patient should followup with primary care provider in 1-2 weeks. Patient should follow with her surgeon on 10/16/2018 for her severe exophthalmos. Patient should follow with her pneumatic jack operator and web sizer at the scheduled time. Patient should follow with Dr. Brice in 1 week. Patient will be referred to tracer powder blender in [place] for further evaluations. DISCHARGE CONDITION: Fair. DISCHARGE TIME: Greater than 30 minutes.
== END 2018-10-13 15:40 | disposition home or self-care (01) | DRG 312 ==
LOC: EDBD 14:26 → M ED 14:26 → M ED INP 20:16 → M MSPAV 10-12 16:02
PROVIDERS: ADMIT Internal Medicine; ATTEND Internal Medicine
DX: R55 Syncope and collapse (principal); E05.00 Thyrotoxicosis with diffuse goiter without thyrotoxic crisis or storm; F32.9 Major depressive disorder, single episode, unspecified; F41.9 Anxiety disorder, unspecified; Z79.899 Other long term (current) drug therapy

== ENCOUNTER → 2018-11-16 | Outpatient (CLI) | payer OTHER ==
[~2018-11-16] MED LIST changes: +MECL-68 PO; +RITU10VLL IV; +TRAM50TA2 PO; +TRAZ-160 PO; +VITA200015 PO
== END ==
LOC: M LRY 10:25
PROVIDERS: ATTEND Internal Medicine
DX: E05.90 Thyrotoxicosis, unspecified without thyrotoxic crisis or storm (principal); E05.00 Thyrotoxicosis with diffuse goiter without thyrotoxic crisis or storm

== ENCOUNTER 2019-01-10 09:06 | Emergency (ER) | payer OTHER ==
[~2019-01-10] VITALS: Ht 162.6 cm; Wt 82.3 kg
[~2019-01-10 09:06] MED LIST changes: -TRAZ-160 PO; +TRAZ-252 PO
[2019-01-10] MEDS ORDERED: NS 1,000 ML IV SCH (09:52)
[2019-01-10 10:01] LABS: BASO % 0.3 % (0.0-1.0); EOS # 0.1 10^3/uL (0.0-0.50); EOS % 1.7 % (0.0-3.0); HEMATOCRIT 40.4 % (36.0-47.0); HEMOGLOBIN 13.9 g/dl (12.0-15.5); LYMPH # 1.3 10^3/uL (1.5-4.5); LYMPH % 17.7 % (24.0-44.0); MEAN CORPUSCULAR HGB CONC 34.4 g/dl (32.0-36.5); MEAN CORPUSCULAR VOLUME 93.1 fl (80.0-96.0); MONO # 0.8 10^3/uL (0.0-0.8); NEUTROPHILS # 5.3 10^3/uL (1.8-7.7); PLATELET COUNT, AUTOMATED 213 10^3/uL (150-450); RED BLOOD COUNT 4.34 10^6/uL (4.00-5.40); WHITE BLOOD COUNT 7.6 10^3/uL (4.0-10.0)
[2019-01-10 10:14] LABS: INR 0.92; PARTIAL THROMBOPLASTIN TIME 30.9 SECONDS (25.4-37.6); PROTHROMBIN TIME 12.5 SECONDS (12.1-14.4)
[2019-01-10 10:40] LABS: ALBUMIN 3.6 GM/DL (3.2-5.2); ALT/SGPT 23 U/L (12-78); BILIRUBIN,DIRECT 0.1 MG/DL (0.0-0.2); BILIRUBIN,TOTAL 0.4 MG/DL (0.2-1.0); BLOOD UREA NITROGEN 8 MG/DL (7-18); CALCIUM LEVEL 8.2 MG/DL (8.5-10.1); CARBON DIOXIDE LEVEL 27 MEQ/L (21-32); CHLORIDE LEVEL 107 MEQ/L (98-107); CK-MB VALUE MASS < 1.0 NG/ML (<3.6); CPK CREATINE PHOSPHOKINASE 54 U/L (26-192); CREATININE FOR GFR 0.84 MG/DL (0.55-1.30); FREE T4 0.95 NG/DL (0.76-1.46); GLOMERULAR FILTRATION RATE > 60.0 (>51); GLUCOSE, FASTING 102 MG/DL (70-100); MAGNESIUM LEVEL 2.3 MG/DL (1.8-2.4); MB/CK RELATIVE INDEX 1.85 (< OR =4); PHOSPHORUS LEVEL 1.8 MG/DL (2.5-4.9); POTASSIUM SERUM 3.7 MEQ/L (3.5-5.1); SODIUM LEVEL 142 MEQ/L (136-145); THYROID STIMULATING HORMONE 0.931 uIU/ML (0.358-3.740); TROPONIN I < 0.02 NG/ML (< 0.10)
[2019-01-10] MEDS ORDERED: NEUTRA-PHOS 1.5 GM PACKET PO ONE (10:45)
--- NOTE | 2019-01-10 11:03 | REP ---
Chest x-ray: Two views. History: Chest pain. Comparison study: August 31, 2018. Findings: EKG monitoring electrodes overlie the chest. A loop recorder is visible in the left precordial soft tissues. The heart size is normal. Lungs are well inflated and free of infiltrate. Pleural angles are sharp. Pulmonary vasculature is not increased. Impression: No active disease. Electronically Signed by Kiran Bernard MD 01/10/2019 10:54 A
[2019-01-10 11:30] VITALS: BP 128/74
--- NOTE | 2019-01-11 13:11 | ECGEPIP ---
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
== END 2019-01-10 11:45 | disposition home or self-care (01) ==
LOC: M ED 09:06
DX: R00.2 Palpitations (principal); E05.90 Thyrotoxicosis, unspecified without thyrotoxic crisis or storm; F33.9 Major depressive disorder, recurrent, unspecified; F41.9 Anxiety disorder, unspecified; Z79.899 Other long term (current) drug therapy

== ENCOUNTER → 2019-04-09 | Outpatient (CLI) | payer OTHER ==
[2019-04-09 13:16] LABS: BLOOD UREA NITROGEN 19 MG/DL (7-18); CALCIUM LEVEL 8.4 MG/DL (8.5-10.1); CARBON DIOXIDE LEVEL 30 MEQ/L (21-32); CHLORIDE LEVEL 103 MEQ/L (98-107); CREATININE FOR GFR 0.81 MG/DL (0.55-1.30); FREE T4 0.83 NG/DL (0.76-1.46); GLOMERULAR FILTRATION RATE > 60.0 (>51); GLUCOSE, FASTING 85 MG/DL (70-100); POTASSIUM SERUM 4.5 MEQ/L (3.5-5.1); SODIUM LEVEL 140 MEQ/L (136-145)
== END ==
LOC: M LRY 09:43
PROVIDERS: ATTEND Internal Medicine Cardiovascular Disease
DX: E04.1 Nontoxic single thyroid nodule (principal); E05.00 Thyrotoxicosis with diffuse goiter without thyrotoxic crisis or storm

== ENCOUNTER → 2019-10-11 | Outpatient (CLI) | payer OTHER ==
[~2019-10-11] MED LIST changes: -MECL-68 PO; +MECL1TAB31 PO
[2019-10-11 20:26] LABS: FREE T3 2.5 PG/ML (2.2-4.0); FREE T4 0.96 NG/DL (0.76-1.46); THYROID STIMULATING HORMONE 1.57 uIU/ML (0.358-3.740)
== END ==
LOC: M WUC 17:41
PROVIDERS: ATTEND Internal Medicine
DX: E05.90 Thyrotoxicosis, unspecified without thyrotoxic crisis or storm (principal)

== ENCOUNTER → 2019-10-16 | Outpatient (CLI) | payer OTHER ==
--- NOTE | 2019-10-16 16:51 | REPVR ---
PROCEDURE INFORMATION: Exam: CT Orbits Without Contrast Exam date and time: 10/16/2019 2:35 PM Age: 54 years old Clinical indication: Exophthalmos (bulging eyes); Exophthalmos not specified; Bilateral; Additional info: Exopthalmos TECHNIQUE: Imaging protocol: Computed tomography images of the orbits without contrast. Radiation optimization: All CT scans at this facility use at least one of these dose optimization techniques: automated exposure control; mA and/or kV adjustment per patient size (includes targeted exams where dose is matched to clinical indication); or iterative reconstruction. COMPARISON: CT Head without contrast 10/11/2018 3:55 PM FINDINGS: Orbits: There is prominent enlargement of the right inferior rectus muscle, and left inferior, medial, and superior rectus muscles. There is also mild enlargement of the left superior oblique muscle. Enlargement of these extraocular muscles does not involve the tendinous insertions. Bilateral proptosis. Generalized prominent degree of intraorbital fat. Globes are intact. Sinuses: No air-fluid levels in the visualized paranasal sinuses. Bones/joints: Medial indentation of the left lamina papyracea. Mastoid air cells: Mastoid air cells are clear. Soft tissues: Unremarkable. Brain: Visualized brain parenchyma is unremarkable. IMPRESSION: 1. Bilateral enlargement of extraocular muscles without involvement of tendinous insertions, most suspicious for thyroid associated orbitopathy. Recommend endocrinology consultation and correlation with thyroid hormone levels. 2. Medial indentation of the left lamina papyracea, likely chronic remodeling in the setting of enlarged left medial rectus muscle. Electronically signed by: Higinio Benson On 10/16/2019 16:51:20 PM
== END ==
LOC: M RAD 14:28
PROVIDERS: ATTEND Ophthalmology
DX: H05.243 Constant exophthalmos, bilateral (principal)

== ENCOUNTER 2020-03-25 08:29 | Outpatient (CLI) | payer OTHER ==
[~2020-03-25] VITALS: Ht 165.1 cm; Wt 91.0 kg
[2020-03-25] MEDS ORDERED: methylPREDNISolone 250 MG in D5W 100 ML IV PRN (08:30)
[2020-03-25] MEDS ORDERED: NS IV ONE (08:30)
[2020-03-25] MEDS ORDERED: TEPROTUMUMAB TRBW IV ONE (08:30)
[2020-03-25 08:51] VITALS: BP 119/57
[2020-03-25 10:12] VITALS: BP 125/67
[2020-03-25 11:00] VITALS: BP 136/70
[2020-03-25 11:35] VITALS: BP 132/69
[2020-03-25 13:06] VITALS: BP 115/65
== END 2020-03-25 13:10 | disposition home or self-care (01) ==
LOC: M INFU 08:29
PROVIDERS: ATTEND Ophthalmology
DX: H05.242 Constant exophthalmos, left eye (principal)

== ENCOUNTER 2020-04-15 08:55 | Outpatient (CLI) | payer OTHER ==
[~2020-04-15] VITALS: Ht 165.1 cm; Wt 89.7 kg
[~2020-04-15 08:55] MED LIST changes: +methylPREDNISolone 250 MG in D5W 50 ML IV PRN
[2020-04-15 09:00] VITALS: BP 120/66
[2020-04-15 09:41] VITALS: BP 120/66
[2020-04-15] MEDS ORDERED: NS IV ONE (09:45)
[2020-04-15] MEDS ORDERED: TEPROTUMUMAB TRBW IV ONE (09:45)
[2020-04-15 11:00] VITALS: BP 114/65
[2020-04-15 11:35] VITALS: BP 115/64
[2020-04-15 12:50] VITALS: BP 111/58
== END 2020-04-15 12:50 | disposition home or self-care (01) ==
LOC: M INFU 08:55
PROVIDERS: ATTEND Ophthalmology
DX: H05.242 Constant exophthalmos, left eye (principal)

== ENCOUNTER 2020-05-06 08:29 | Outpatient (CLI) | payer OTHER ==
[~2020-05-06] VITALS: Ht 165.1 cm; Wt 89.7 kg
[~2020-05-06 08:29] MED LIST changes: -TEPR500V IV
[2020-05-06 08:50] VITALS: BP 120/71
[2020-05-06] MEDS: TEPROTUMUMAB TRBW IV ONE (09:44)
[2020-05-06] MEDS: NS IV ONE (09:44)
[2020-05-06 10:45] VITALS: BP 112/66
[2020-05-06 12:00] VITALS: BP 130/64
== END 2020-05-06 12:00 | disposition home or self-care (01) ==
LOC: M INFU 08:29
PROVIDERS: ATTEND Ophthalmology
DX: H05.242 Constant exophthalmos, left eye (principal)

== ENCOUNTER → 2020-05-06 | Outpatient (CLI) | payer OTHER ==
[~2020-05-06] MED LIST changes: +TEPR500V IV; -methylPREDNISolone 250 MG in D5W 50 ML IV PRN
[2020-05-06 12:21] LABS: HEMOGLOBIN A1c 5.4 %
--- NOTE | 2020-05-11 09:56 | REP ---
THYROID ULTRASOUND HISTORY: Neck swelling. TECHNIQUE: Real-time sonographic evaluation of the thyroid is performed. FINDINGS: Both lobes are mildly enlarged, right lobe measuring 5.3 x 1.8 x 1.5 cm and left lobe 5.1 x 1.6 x 1.1 cm. There is a cystic structure anteriorly in the right lobe 5 x 2 x 2 mm. No other cystic or solid nodule is seen in the thyroid. Adjacent soft tissues of the neck demonstrate no definite cystic or solid nodule. IMPRESSION: Mild thyromegaly. Subcentimeter cystic structure right lobe. Adjacent soft tissues are grossly unremarkable. MTDD
== END ==
LOC: M RAD 08:32
PROVIDERS: ATTEND Internal Medicine
DX: R22.1 Localized swelling, mass and lump, neck (principal); E07.9 Disorder of thyroid, unspecified

== ENCOUNTER → 2020-05-22 | Outpatient (CLI) | payer OTHER ==
[~2020-05-22] MED LIST changes: +TEPR500V IV
[2020-05-22 17:08] LABS: HEMOGLOBIN A1c 5.8 %
[2020-05-22 17:28] LABS: FREE T3 2.5 PG/ML (2.2-4.0); THYROID STIMULATING HORMONE 1.16 uIU/ML (0.358-3.740); THYROXINE (T4) 7.7 UG/DL (4.5-12.0)
== END ==
LOC: M LAB 15:54
PROVIDERS: ATTEND Internal Medicine
DX: E05.90 Thyrotoxicosis, unspecified without thyrotoxic crisis or storm (principal); R63.5 Abnormal weight gain

== ENCOUNTER 2020-05-27 08:47 | Outpatient (CLI) | payer OTHER ==
[~2020-05-27] VITALS: Ht 165.1 cm; Wt 89.7 kg
[~2020-05-27 08:47] MED LIST changes: +NS IV ONE; -TEPR500V IV; +TEPROTUMUMAB TRBW IV ONE
[2020-05-27 08:50] VITALS: BP 122/58
[2020-05-27] MEDS ORDERED: TEPR500V IV (09:06)
[2020-05-27 09:32] VITALS: BP 122/58
[2020-05-27 10:58] VITALS: BP 99/61
[2020-05-27 11:30] VITALS: BP 120/67
[2020-05-27 11:57] VITALS: BP 123/69
== END 2020-05-27 12:00 | disposition home or self-care (01) ==
LOC: M INFU 08:47
PROVIDERS: ATTEND Ophthalmology
DX: H05.242 Constant exophthalmos, left eye (principal)

== ENCOUNTER → 2020-06-12 | Outpatient (REF) | payer OTHER ==
[~2020-06-12] MED LIST changes: -NS IV ONE; +TEPR500V IV; -TEPROTUMUMAB TRBW IV ONE
== END ==
LOC: M LAB REF 19:44
PROVIDERS: ATTEND Physician Assistant
DX: J02.9 Acute pharyngitis, unspecified (principal)

== ENCOUNTER 2020-06-17 08:47 | Outpatient (CLI) | payer OTHER ==
[~2020-06-17] VITALS: Ht 162.6 cm; Wt 90.0 kg
[2020-06-17 08:50] VITALS: BP 129/81
[2020-06-17] MEDS ORDERED: TEPROTUMUMAB TRBW IV ONE (09:45)
[2020-06-17] MEDS ORDERED: NS IV ONE (09:45)
[2020-06-17] MEDS ORDERED: methylPREDNISolone 250 MG in D5W 100 ML IV PRN (09:45)
[2020-06-17 11:40] VITALS: BP_SYST 116; BP_DIAS 56; BP_DIAS 70
[2020-06-17 11:41] VITALS: BP 116/70
[2020-06-17 12:00] VITALS: BP 120/56
== END 2020-06-17 12:00 | disposition home or self-care (01) ==
LOC: M INFU 08:47
PROVIDERS: ATTEND Ophthalmology
DX: H05.242 Constant exophthalmos, left eye (principal)

== ENCOUNTER 2020-07-08 08:40 | Outpatient (CLI) | payer OTHER ==
[~2020-07-08] VITALS: Ht 162.6 cm; Wt 89.7 kg
[~2020-07-08 08:40] MED LIST changes: +NS IV ONE; +TEPROTUMUMAB TRBW IV ONE; +methylPREDNISolone 250 MG in D5W 100 ML IV PRN
[2020-07-08 08:45] VITALS: BP 114/51
[2020-07-08 12:30] VITALS: BP 118/70
== END 2020-07-08 12:30 | disposition home or self-care (01) ==
LOC: M INFU 08:40
PROVIDERS: ATTEND Ophthalmology
DX: H05.242 Constant exophthalmos, left eye (principal)

== ENCOUNTER 2020-07-29 08:55 | Outpatient (CLI) | payer OTHER ==
[~2020-07-29] VITALS: Ht 165.1 cm; Wt 89.7 kg
[2020-07-29 08:55] VITALS: BP 120/84
[~2020-07-29 08:55] MED LIST changes: +methylPREDNISolone 125MG 2ML VIAL IV PRN; -methylPREDNISolone 250 MG in D5W 100 ML IV PRN
[2020-07-29 11:20] VITALS: BP 112/70
== END 2020-07-29 11:20 | disposition home or self-care (01) ==
LOC: M INFU 08:55
PROVIDERS: ATTEND Ophthalmology
DX: H05.242 Constant exophthalmos, left eye (principal)

== ENCOUNTER 2020-08-21 16:29 | Emergency (ER) | payer OTHER ==
[~2020-08-21] VITALS: Ht 165.1 cm; Wt 84.1 kg
[~2020-08-21 16:29] MED LIST changes: -NS IV ONE; -TEPROTUMUMAB TRBW IV ONE; -methylPREDNISolone 125MG 2ML VIAL IV PRN
[2020-08-21] MEDS ORDERED: ONDANSETRON 4 MG TAB PO ONE (17:45)
[2020-08-21] MEDS ORDERED: MECLIZINE 25 MG TABLET PO ONE (17:45)
[2020-08-21] MEDS ORDERED: MECL1TAB31 PO (17:46)
[2020-08-21 18:17] LABS: BASO % 0.2 % (0.0-1.0); EOS # 0.1 10^3/uL (0.0-0.5); EOS % 0.7 % (0.0-3.0); HEMATOCRIT 41.6 % (36.0-47.0); HEMOGLOBIN 13.9 g/dl (12.0-15.5); LYMPH # 1.4 10^3/uL (1.5-5.0); LYMPH % 11.2 % (24.0-44.0); MEAN CORPUSCULAR HEMOGLOBIN 31.2 pg (27.0-33.0); MEAN CORPUSCULAR HGB CONC 33.4 g/dl (32.0-36.5); MEAN CORPUSCULAR VOLUME 93.5 fl (80.0-96.0); MONO # 0.7 10^3/uL (0.0-0.8); MONO % 5.1 % (0.0-5.0); NEUTROPHILS # 10.5 10^3/uL (1.5-8.5); NEUTROPHILS % 82.5 % (36.0-66.0); PLATELET COUNT, AUTOMATED 252 10^3/uL (150-450); RED BLOOD COUNT 4.45 10^6/uL (4.00-5.40); WHITE BLOOD COUNT 12.7 10^3/uL (4.0-10.0)
[2020-08-21 19:23] VITALS: BP 123/72
== END 2020-08-21 19:27 | disposition home or self-care (01) ==
LOC: M ED 16:29
DX: H81.4 Vertigo of central origin (principal); H68.102 Unspecified obstruction of Eustachian tube, left ear; E05.00 Thyrotoxicosis with diffuse goiter without thyrotoxic crisis or storm

== ENCOUNTER → 2020-09-03 | Outpatient (CLI) | payer OTHER ==
--- NOTE | 2020-09-04 04:08 | REP ---
INDICATION: N95.0 PMB COMPARISON: None. TECHNIQUE: Transabdominal pelvic ultrasound followed by transvaginal examination for better evaluation of the endometrium and adnexa with color Doppler evaluation of the ovaries. FINDINGS: Bladder is collapsed. Heterogeneous anteverted uterus measures 8.0 x 4.0 x 4.4. The endometrial complex measures 3.0 mm thickness. Multiple complex nabothian cysts are suggested in the cervical region measuring up to approximately 20 mm. Bilateral ovaries are normal in appearance and vascularity without evidence for torsion. Right ovary measures 2.1 x 0.9 x 2.1 cm; R I = 0.84. Left ovary measures 2.0 x 0.9 x 0.7 cm; R I = 0.67. No pelvic fluid or adnexal mass lesion. IMPRESSION: Complex nabothian cysts up to 20 mm. Otherwise unremarkable pelvic ultrasound. <Electronically signed by Saad Gold > 09/04/20 [id number]
== END ==
LOC: M WHC 16:05
PROVIDERS: ATTEND Family Medicine
DX: N95.0 Postmenopausal bleeding (principal)

== ENCOUNTER → 2020-11-24 | Outpatient (REF) | payer OTHER | LOC: M SFHCLERA 15:30 | PROVIDERS: ATTEND Nurse Practitioner Family | DX: R59.0 Localized enlarged lymph nodes (principal) ==

== ENCOUNTER → 2020-11-25 | Outpatient (REF) | payer OTHER | LOC: M SFHCLERA 12:59 | PROVIDERS: ATTEND Family Medicine | DX: R59.0 Localized enlarged lymph nodes (principal) ==

== ENCOUNTER → 2020-11-25 | Outpatient (CLI) | payer OTHER ==
[~2020-11-25] MED LIST changes: +GASTROGRAFIN SOLUTION 30ML (Q9963) As Ordered ONE; +ISOVUE-370 76% 100ML VIAL As Ordered ONE
[2020-11-25 10:21] LABS: BASO % 0.3 % (0.0-1.0); EOS # 0.1 10^3/uL (0.0-0.5); EOS % 1.1 % (0.0-3.0); HEMOGLOBIN 13.8 g/dl (12.0-15.5); LYMPH # 2.4 10^3/uL (1.5-5.0); LYMPH % 23.9 % (24.0-44.0); MEAN CORPUSCULAR HEMOGLOBIN 31.4 pg (27.0-33.0); MEAN CORPUSCULAR HGB CONC 33.7 g/dl (32.0-36.5); MEAN CORPUSCULAR VOLUME 93.2 fl (80.0-96.0); MONO # 0.8 10^3/uL (0.0-0.8); NEUTROPHILS # 6.6 10^3/uL (1.5-8.5); NEUTROPHILS % 66.3 % (36.0-66.0); PLATELET COUNT, AUTOMATED 275 10^3/uL (150-450)
[2020-11-25 10:49] LABS: MONO REFLEX EBV COMP NEGATIVE (NEGATIVE)
[2020-11-25 11:32] LABS: ALBUMIN 3.6 GM/DL (3.2-5.2); ALT/SGPT 43 U/L (12-78); BILIRUBIN,TOTAL 0.4 MG/DL (0.2-1.0); BLOOD UREA NITROGEN 15 MG/DL (7-18); CALCIUM LEVEL 9.1 MG/DL (8.5-10.1); CARBON DIOXIDE LEVEL 29 MEQ/L (21-32); CHLORIDE LEVEL 102 MEQ/L (98-107); CREATININE FOR GFR 0.79 MG/DL (0.55-1.30); GLOMERULAR FILTRATION RATE > 60.0 (>51); GLUCOSE, FASTING 104 MG/DL (70-100); POTASSIUM SERUM 4.2 MEQ/L (3.5-5.1); SODIUM LEVEL 137 MEQ/L (136-145); THYROID STIMULATING HORMONE 0.661 uIU/ML (0.358-3.740)
[2020-11-25 11:56] LABS: HIV 1&2 SCREEN CENTAUR NEGATIVE (NEGATIVE)
--- NOTE | 2020-11-25 11:59 | REP ---
INDICATION: GIOVANY SUPRACLAVICULAR ADENOPATHY- STAT LABS FIRST COMPARISON: None. TECHNIQUE: Standard helical technique after the intravenous administration of 100 cc Isovue 370 FINDINGS: There is no evidence of mediastinal or hilar adenopathy. There is no evidence of neck root adenopathy. There are no pleural or pericardial effusions. The imaged osseous structures are within normal limits. Evaluation of the lung jensen shows no abnormal nodules, masses, or opacities. [place] artifact is seen within left anterior chest wall adipose secondary to an implanted recording device. IMPRESSION: CT findings are within normal limits. <Electronically signed by Lennox Ramirez > 11/25/20 [id number]
--- NOTE | 2020-11-25 12:04 | REP ---
INDICATION: GIOVANY SUPRACLAVICULAR ADENOPATHY- STAT LABS FIRST. COMPARISON: None TECHNIQUE: Standard helical technique after the intravenous administration of 100 cc Isovue 370 and oral bowel preparatory contrast administration. FINDINGS: In the anterior segment of the right lobe of the liver there is a 1.6 cm sized focal area of low density consistent with a small cyst. A smaller area of the same characteristics is seen in the lateral segment of the left lobe of the liver. There are no enhancing hepatic lesions. The gallbladder, spleen, pancreas, adrenal glands, and kidneys are within normal limits. The abdominal aorta and para-regions are within normal limits. There is no free fluid or free air. The bowel loops and the mesenteries are within normal limits. There is a hiatal hernia. There is no evidence of a mass or adenopathy. Bone window technique throughout the examination shows the osseous structures to be within normal limits for the patient's age. Incidental note is made of an L3 superior endplate limbus vertebral body. Air density is seen in the L5-S1 disc space secondary to vacuum phenomena from degenerative disc disease. IMPRESSION: There is no evidence of acute disease. Findings as described above. <Electronically signed by Lennox Ramirez > 11/25/20 [id number]
[2020-11-26 16:08] LABS: EBV VIRAL CAPSID AG IgG >600.0 U/mL (0.0-17.9); EBV VIRAL CAPSID AG IgM <36.0 U/mL (0.0-35.9)
== END ==
LOC: M LAB 09:48
PROVIDERS: ATTEND Nurse Practitioner Family
DX: R59.0 Localized enlarged lymph nodes (principal)

== ENCOUNTER → 2020-11-27 | Outpatient (CLI) | payer OTHER ==
[~2020-11-27] MED LIST changes: -GASTROGRAFIN SOLUTION 30ML (Q9963) As Ordered ONE; -ISOVUE-370 76% 100ML VIAL As Ordered ONE
--- NOTE | 2020-11-28 09:10 | REP ---
INDICATION: LOCALIZED SWELLING, MASS AND LUMP, NECK COMPARISON: 05/06/2020 TECHNIQUE: Mcintyre scale and color evaluation of the thyroid gland using the linear high frequency transducer. FINDINGS: The thyroid gland is essentially normal in contour, shape, size, and echogenicity. Right thyroid lobe measures 4.9 x 1.7 x 1.3 cm and again includes 82.9 x 2.5 x 2.7 mm upper pole hypodense nodule unchanged from prior examination when allowing for variation in technique. Isthmus measures 2.1 mm in width. Left thyroid lobe measures 4.7 x 1.6 x 1.1 cm without nodule, cyst or mass. Further evaluation in the region of swelling at the right supraclavicular area demonstrates no obvious abnormality. IMPRESSION: Essentially stable normal thyroid ultrasound. Supraclavicular area without obvious abnormality. <Electronically signed by Saad Gold > 11/28/20 [id number]
== END ==
LOC: M RAD 17:03
PROVIDERS: ATTEND Family Medicine
DX: R22.1 Localized swelling, mass and lump, neck (principal)

== ENCOUNTER → 2020-11-30 | Outpatient (REF) | payer OTHER ==
[2020-11-30 14:24] LABS: CREATININE, URINE 74.4 MG/DL
[2020-11-30 20:07] LABS: CREATININE 24 HOUR, URINE 1078.8 MG/24HR (600-1800)
== END ==
LOC: M LAB REF 12:55
PROVIDERS: ATTEND Internal Medicine
DX: R63.5 Abnormal weight gain (principal); E05.90 Thyrotoxicosis, unspecified without thyrotoxic crisis or storm

== ENCOUNTER → 2020-12-03 | Outpatient (CLI) | payer OTHER ==
[2020-12-03 20:05] LABS: C REACTIVE PROTEIN QUANTITATIV 0.82 MG/DL (0.00-0.30); RHEUMATOID FACTOR QUANT < 10.0 IU/ML (<15.0)
== END ==
LOC: M WUC 15:29
PROVIDERS: ATTEND Family Medicine
DX: R22.1 Localized swelling, mass and lump, neck (principal)

== ENCOUNTER 2020-12-09 15:08 | Outpatient (CLI) | payer OTHER ==
[~2020-12-09] VITALS: Ht 165.1 cm; Wt 79.0 kg
[~2020-12-09 15:08] MED LIST changes: +NS IV ONE; +TEPROTUMUMAB TRBW IV ONE
[2020-12-09 15:17] VITALS: BP 133/59
[2020-12-09 15:23] VITALS: BP 133/59
[2020-12-09 16:49] VITALS: BP 123/75
== END 2020-12-09 16:55 | disposition home or self-care (01) ==
LOC: M INFU 15:08
PROVIDERS: ATTEND Ophthalmology
DX: H05.242 Constant exophthalmos, left eye (principal)

== ENCOUNTER → 2020-12-30 | Outpatient (CLI) | payer OTHER ==
[~2020-12-30] MED LIST changes: +ISOVUE-370 76% 100ML VIAL As Ordered ONE; -NS IV ONE; -TEPROTUMUMAB TRBW IV ONE
--- NOTE | 2020-12-30 08:27 | REPVR ---
PROCEDURE INFORMATION: Exam: CT Neck With Contrast Exam date and time: 12/30/2020 7:59 AM Age: 55 years old Clinical indication: Mass, lump, or swelling in neck; Additional info: Neck swelling TECHNIQUE: Imaging protocol: Computed tomography images of the neck with contrast. Radiation optimization: All CT scans at this facility use at least one of these dose optimization techniques: automated exposure control; mA and/or kV adjustment per patient size (includes targeted exams where dose is matched to clinical indication); or iterative reconstruction. Contrast material: ISOVUE 370; Contrast volume: 75 ml; Contrast route: INTRAVENOUS (IV); COMPARISON: CT ANGIO NECK 10/11/2018 3:59 PM FINDINGS: Nasopharynx: Unremarkable. Oropharynx: Unremarkable. No significant tonsillar enlargement. Hypopharynx: Unremarkable. Larynx: Unremarkable. Normal epiglottis. Retropharyngeal space: Unremarkable. Submandibular/Parotid glands: Normal. Glands are normal in size. Thyroid: Normal. No enlarged or calcified nodules. Lymph nodes: Unremarkable. No lymphadenopathy. Trachea: Visualized trachea is unremarkable. Lungs: Unremarkable as visualized. Bones/joints: Unremarkable. No acute fracture. Soft tissues: Unremarkable. No significant soft tissue swelling. IMPRESSION: No acute findings. Electronically signed by: Loyda Evans On 12/30/2020 08:27:11 AM
== END ==
LOC: M RAD 07:38
PROVIDERS: ATTEND Family Medicine
DX: R22.1 Localized swelling, mass and lump, neck (principal)

== ENCOUNTER → 2021-02-25 | Outpatient (CLI) | payer OTHER ==
[~2021-02-25] MED LIST changes: -ISOVUE-370 76% 100ML VIAL As Ordered ONE; +LEXA1TAB2 PO
== END ==
LOC: M LABSMTC 10:42
PROVIDERS: ATTEND Anesthesiology
DX: Z01.812 Encounter for preprocedural laboratory examination (principal); Z11.52 Encounter for screening for COVID-19

== ENCOUNTER 2021-03-02 09:08 | Day surgery (SDC) | payer OTHER ==
[~2021-03-02] VITALS: Ht 162.6 cm; Wt 88.5 kg
[~2021-03-02 09:08] MED LIST changes: +NS 1,000 ML IV SCH
[2021-03-02] MEDS ORDERED: LIDOCAINE 2% 100MG/5ML SDV (FOR ANES.) As Ordered ONE (10:46)
[2021-03-02] MEDS ORDERED: propofoL 200 MG/20 ML VIAL As Ordered ONE (10:46)
--- NOTE | 2021-03-02 11:09 | ROOR ---
Patient Name: Hilda Cameron Procedure Date: 03/02/2021 10:49 AM Date of : 1965 Age: 55 Room: OP02 Gender: Female Note Status: Finalized Procedure: Colonoscopy Indications: Screening in patient at increased risk: Colorectal cancer in brother before age 60 Providers: Michelet Nava MD Referring MD: [facility], Admin. Requesting Provider: Medicines: Monitored Anesthesia Care Complications: No immediate complications. Procedure: Pre-Anesthesia Assessment: - The heart rate, respiratory rate, oxygen saturations, blood pressure, adequacy of pulmonary ventilation, and response to care were monitored throughout the procedure. The Colonoscope was introduced through the anus and advanced to the cecum, identified by appendiceal orifice and ileocecal valve. The colonoscopy was performed without difficulty. The patient tolerated the procedure well. The quality of the bowel preparation was excellent. Findings: The perianal and digital rectal examinations were normal. The entire colon appeared normal on direct and retroflexion views. Impression: - No specimens collected. Recommendation: - Repeat colonoscopy in 5 years for screening purposes. Procedure Code(s): --- Professional --- 66616, Colonoscopy, flexible; diagnostic, including collection of specimen(s) by brushing or washing, when performed (separate procedure) Diagnosis Code(s): --- Professional --- Z80.0, Family history of malignant neoplasm of digestive organs CPT copyright 2019 [employer]. All rights reserved. The codes documented in this report are preliminary and upon commercial driver's license driver review may be revised to meet current compliance requirements. Michelet Nava MD Michelet Nava MD 03/02/2021 11:09:29 AM Electronically signed by Michelet Nava MD Number of Addenda: 0 Note Initiated On: 03/02/2021 10:49 AM Estimated Blood Loss: Estimated blood loss: none.
[2021-03-02 11:38] VITALS: BP 109/63
[2021-03-03] MEDS ORDERED: DOXY1CAP62 PO (01:37)
[2021-03-03] MEDS ORDERED: CEPH500C PO (01:37)
[2021-03-03] MEDS ORDERED: MEDR4PAK PO (01:59)
== END 2021-03-02 11:42 | disposition home or self-care (01) ==
LOC: M OPP 09:08
PROVIDERS: ATTEND Internal Medicine Gastroenterology
DX: Z12.11 Encounter for screening for malignant neoplasm of colon (principal); Z80.0 Family history of malignant neoplasm of digestive organs; Z80.3 Family history of malignant neoplasm of breast; Z79.899 Other long term (current) drug therapy

== ENCOUNTER 2021-03-02 17:24 | Emergency (ER) | payer OTHER ==
[~2021-03-02] VITALS: Ht 162.6 cm; Wt 85.9 kg
[~2021-03-02 17:24] MED LIST changes: -NS 1,000 ML IV SCH
[2021-03-02 17:41] VITALS: BP 113/76
[2021-03-03] MEDS ORDERED: methylPREDNISolone 125MG 2ML VIAL IV ONE (00:20)
[2021-03-03] MEDS ORDERED: cefTRIAXone SOD 1 GM in D5W MINI-BAG PLUS 50 ML IV ONE (00:20)
[2021-03-03 00:33] LABS: BASO % 0.3 % (0.0-1.0); EOS # 0.1 10^3/uL (0.0-0.5); HEMOGLOBIN 13.5 g/dl (12.0-15.5); LYMPH # 2.5 10^3/uL (1.5-5.0); LYMPH % 18.3 % (24.0-44.0); MEAN CORPUSCULAR HEMOGLOBIN 31.8 pg (27.0-33.0); MEAN CORPUSCULAR HGB CONC 33.8 g/dl (32.0-36.5); MEAN CORPUSCULAR VOLUME 94.3 fl (80.0-96.0); MONO # 1.2 10^3/uL (0.0-0.8); MONO % 8.6 % (2.0-8.0); NEUTROPHILS # 9.6 10^3/uL (1.5-8.5); NEUTROPHILS % 71.4 % (36.0-66.0); PLATELET COUNT, AUTOMATED 253 10^3/uL (150-450); RED BLOOD COUNT 4.24 10^6/uL (4.00-5.40); WHITE BLOOD COUNT 13.5 10^3/uL (4.0-10.0)
[2021-03-03 00:57] LABS: BLOOD UREA NITROGEN 15 MG/DL (7-18); C REACTIVE PROTEIN QUANTITATIV 4.62 MG/DL (0.00-0.30); CALCIUM LEVEL 8.1 MG/DL (8.5-10.1); CARBON DIOXIDE LEVEL 29 MEQ/L (21-32); CHLORIDE LEVEL 106 MEQ/L (98-107); CREATININE FOR GFR 0.76 MG/DL (0.55-1.30); GLOMERULAR FILTRATION RATE > 60.0 (>51); GLUCOSE, FASTING 86 MG/DL (70-100); POTASSIUM SERUM 4.1 MEQ/L (3.5-5.1); SODIUM LEVEL 140 MEQ/L (136-145)
[2021-03-03] MEDS ORDERED: CEPH500C PO (01:37)
[2021-03-03] MEDS ORDERED: DOXY-443 PO (01:37)
[2021-03-03] MEDS ORDERED: MEDR4PAK PO (01:59)
== END 2021-03-03 02:19 | disposition home or self-care (01) ==
LOC: M ED 17:24
DX: L03.113 Cellulitis of right upper limb (principal); M70.22 Olecranon bursitis, left elbow; Z95.818 Presence of other cardiac implants and grafts; Z79.899 Other long term (current) drug therapy
CPT/HCPCS: 73080; 80048; 85025; 86140; 96365; 96366; 96375; 99284; J0696; J2930

== ENCOUNTER 2021-08-01 13:58 | Emergency (ER) | payer OTHER ==
[~2021-08-01] VITALS: Ht 165.1 cm; Wt 75.0 kg
[~2021-08-01 13:58] MED LIST changes: +CEPH500C PO; +DOXY-443 PO; +MEDR4PAK PO
--- NOTE | 2021-08-01 15:06 | REP ---
INDICATION: dizy COMPARISON: 10/11/2018 TECHNIQUE: Axial noncontrast images from the skull base to the vertex with coronal reformations. This CT examination was performed using the following dose reduction techniques: Automated exposure control, adjustment of mA and/or kv according to the patient's size, and use of iterative reconstruction technique. FINDINGS: The ventricles, sulci, and cisterns are normal in position and appearance. Mcintyre-white differentiation is maintained. No acute intracranial hemorrhage, mass/mass effect, pathology or trauma/injury. No evidence for acute infarction. No extra-axial fluid collection. Calvarium is intact. Paranasal sinuses and mastoid air cells are clear. IMPRESSION: Normal noncontrast head CT. No evidence for acute intracranial pathology or trauma/injury. <Electronically signed by Saad Gold > 08/01/21 [id number]
[2021-08-01] MEDS ORDERED: NS 1,000 ML IV ONE (15:25)
[2021-08-01 15:28] LABS: BASO % 0.3 % (0.0-1.0); EOS # 0.1 10^3/uL (0.0-0.5); EOS % 1.1 % (0.0-3.0); HEMATOCRIT 46.6 % (36.0-47.0); HEMOGLOBIN 15.7 g/dl (12.0-15.5); LYMPH # 1.9 10^3/uL (1.5-5.0); LYMPH % 24.9 % (24.0-44.0); MEAN CORPUSCULAR HEMOGLOBIN 30.8 pg (27.0-33.0); MEAN CORPUSCULAR HGB CONC 33.7 g/dl (32.0-36.5); MEAN CORPUSCULAR VOLUME 91.4 fl (80.0-96.0); MONO # 0.7 10^3/uL (0.0-0.8); MONO % 8.6 % (2.0-8.0); NEUTROPHILS # 4.9 10^3/uL (1.5-8.5); PLATELET COUNT, AUTOMATED 283 10^3/uL (150-450); WHITE BLOOD COUNT 7.6 10^3/uL (4.0-10.0)
[2021-08-01 15:59] LABS: BLOOD UREA NITROGEN 13 MG/DL (7-18); CALCIUM LEVEL 8.5 MG/DL (8.5-10.1); CARBON DIOXIDE LEVEL 27 MEQ/L (21-32); CHLORIDE LEVEL 108 MEQ/L (98-107); CREATININE FOR GFR 0.86 MG/DL (0.55-1.30); FREE T4 0.95 NG/DL (0.76-1.46); GLOMERULAR FILTRATION RATE > 60.0 (>51); GLUCOSE, FASTING 91 MG/DL (70-100); MAGNESIUM LEVEL 2.1 MG/DL (1.8-2.4); POTASSIUM SERUM 4.1 MEQ/L (3.5-5.1); SODIUM LEVEL 144 MEQ/L (136-145)
[2021-08-01 16:00] LABS: RSV AMPLIFICATION NEGATIVE (NEGATIVE)
--- NOTE | 2021-08-01 16:09 | ECGEPIP ---
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
[2021-08-01 16:16] LABS: CK-MB VALUE MASS < 1.0 NG/ML (<3.6); CPK CREATINE PHOSPHOKINASE 97 U/L (26-192); MB/CK RELATIVE INDEX 1.03 (< OR =4)
[2021-08-01 16:45] VITALS: BP 125/64
== END 2021-08-01 17:12 | disposition home or self-care (01) ==
LOC: M ED 13:58
DX: U07.1 COVID-19 (principal); R55 Syncope and collapse; E05.00 Thyrotoxicosis with diffuse goiter without thyrotoxic crisis or storm

== ENCOUNTER → 2022-06-21 | Outpatient (CLI) | payer OTHER ==
[2022-06-21 13:50] LABS: FREE T4 1.13 NG/DL (0.89-1.76); THYROID STIMULATING HORMONE 1.499 uIU/ML (0.55-4.78)
== END ==
LOC: M WUC 10:08
PROVIDERS: ATTEND Internal Medicine
DX: E05.00 Thyrotoxicosis with diffuse goiter without thyrotoxic crisis or storm (principal)

== ENCOUNTER → 2022-08-28 | Outpatient (CLI) | payer OTHER ==
[~2022-08-28] MED LIST changes: +DOXY50CA PO
== END ==
LOC: M LABSMTC 10:59
PROVIDERS: ATTEND Anesthesiology
DX: Z01.818 Encounter for other preprocedural examination (principal)

== ENCOUNTER 2022-08-31 13:37 | Day surgery (SDC) | payer OTHER ==
[~2022-08-31] VITALS: Ht 162.6 cm; Wt 68.9 kg
[~2022-08-31 13:37] MED LIST changes: +ceFAZolin SOD 2 GM in IV 1 EA IV ONE
[2022-08-31] MEDS ORDERED: LIDOCAINE 2% 100MG/5ML SDV (FOR ANES.) As Ordered ONE (15:31)
[2022-08-31] MEDS ORDERED: propofoL 200 MG/20 ML VIAL As Ordered ONE (15:31)
[2022-08-31] MEDS ORDERED: MIDAZOLAM INJ 2MG/2ML VIAL As Ordered ONE (15:32)
[2022-08-31] MEDS ORDERED: fentaNYL 100 MCG/2 ML INJECTION As Ordered ONE (15:32)
[2022-08-31] MEDS ORDERED: LIDOCAINE 1% SDV 30ML VIAL As Ordered ONE (16:51)
[2022-08-31 18:00] VITALS: BP 111/68
== END 2022-08-31 18:09 | disposition home or self-care (01) ==
LOC: M SDC 13:37
PROVIDERS: ATTEND Internal Medicine Cardiovascular Disease
DX: Z45.09 Encounter for adjustment and management of other cardiac device (principal); R55 Syncope and collapse; F41.9 Anxiety disorder, unspecified; F32.A Depression, unspecified; Z79.899 Other long term (current) drug therapy; Z79.2 Long term (current) use of antibiotics
CPT/HCPCS: 33286; J0690; J2250; J3010

== ENCOUNTER → 2024-01-11 | Outpatient (CLI) | payer OTHER ==
[~2024-01-11] MED LIST changes: +DOXY-323 PO; -DOXY-443 PO; +MECL-209 PO; -MECL1TAB31 PO; -ceFAZolin SOD 2 GM in IV 1 EA IV ONE
== END ==
LOC: M RAD 15:21
PROVIDERS: ATTEND Ophthalmology
DX: E07.9 Disorder of thyroid, unspecified (principal)

== ENCOUNTER → 2024-02-02 | Outpatient (REF) | payer OTHER ==
[2024-02-02 11:58] LABS: FREE T4 1.06 NG/DL (0.89-1.76); THYROID STIMULATING HORMONE 1.425 uIU/ML (0.55-4.78); TOTAL T3 77.1 NG/DL (60.0-181.0)
== END ==
LOC: M LABDRAWC 10:37
PROVIDERS: ATTEND Internal Medicine
DX: E03.9 Hypothyroidism, unspecified (principal)

== ENCOUNTER → 2024-06-11 | Outpatient (CLI) | payer OTHER ==
[~2024-06-11] MED LIST changes: -DOXY-323 PO; +DOXY-441 PO
== END ==
LOC: M WHC 17:20
PROVIDERS: ATTEND Advanced Practice Midwife
DX: Z12.31 Encounter for screening mammogram for malignant neoplasm of breast (principal)

== ENCOUNTER 2024-11-05 13:54 | Emergency (ER) | payer OTHER ==
[~2024-11-05] VITALS: Ht 162.6 cm; Wt 68.9 kg
[~2024-11-05 13:54] MED LIST changes: +METH-1386 PO; -METH25TAB PO
[2024-11-05] MEDS ORDERED: PRED10TA2 (14:16)
[2024-11-05] MEDS ORDERED: CYCL5TAB4 PO (14:16)
[2024-11-05] MEDS: GABAPENTIN 300 MG CAP PO ONE (15:20)
[2024-11-05] MEDS: methocarbamoL 750 MG TAB PO ONE (17:26)
[2024-11-05] MEDS: KETOROLAC 60MG 2ML VIAL IM ONE (17:26)
[2024-11-05] MEDS ORDERED: METH-1165 PO (18:03)
[2024-11-05] MEDS: PERCOCET 5MG/325MG TAB PO ONE (18:27)
[2024-11-05 18:42] VITALS: BP 121/70; TEMP 97.9; O2SAT 98
[2024-11-05] MEDS: OXYCODONE/APAP 5MG/325MG(HOME DOSE PACK) PO ONE (19:15)
== END 2024-11-05 19:25 | disposition home or self-care (01) ==
LOC: M ED 13:54
DX: M54.31 Sciatica, right side (principal); M48.061 Spinal stenosis, lumbar region without neurogenic claudication; Z79.52 Long term (current) use of systemic steroids; Z79.899 Other long term (current) drug therapy
CPT/HCPCS: 72131; 96372; 99283; J1885

== ENCOUNTER 2024-11-11 10:27 | Emergency (ER) | payer OTHER ==
[~2024-11-11] VITALS: Ht 162.6 cm; Wt 71.1 kg
[~2024-11-11 10:27] MED LIST changes: +CYCL5TAB4 PO; +METH-1165 PO; +PRED10TA2
[2024-11-11 10:30] VITALS: TEMP 98
[2024-11-11] MEDS ORDERED: GABA-1490 (10:41)
[2024-11-11] MEDS ORDERED: OXYC1TAB23 (10:41)
[2024-11-11] MEDS ORDERED: ALEV220T22 PO (10:41)
[2024-11-11] MEDS ORDERED: TIZA10TA (10:41)
[2024-11-11] MEDS ORDERED: ACET-907 PO (10:41)
[2024-11-11] MEDS ORDERED: PENI500T (10:41)
[2024-11-11 11:45] LABS: BASO % 0.2 % (0.0-1.0); EOS % 0.1 % (0.0-3.0); HEMATOCRIT 39.5 % (36.0-47.0); HEMOGLOBIN 13.3 g/dl (12.0-15.5); LYMPH # 1.9 10^3/uL (1.5-5.0); LYMPH % 11.4 % (24.0-44.0); MEAN CORPUSCULAR HEMOGLOBIN 31.2 pg (27.0-33.0); MEAN CORPUSCULAR HGB CONC 33.7 g/dl (32.0-36.5); MEAN CORPUSCULAR VOLUME 92.7 fl (80.0-96.0); MONO # 1.1 10^3/uL (0.0-0.8); MONO % 6.6 % (2.0-8.0); NEUTROPHILS # 13.2 10^3/uL (1.5-8.5); NEUTROPHILS % 80.5 % (36.0-66.0); PLATELET COUNT, AUTOMATED 278 10^3/uL (150-450); RED BLOOD COUNT 4.26 10^6/uL (4.00-5.40); WHITE BLOOD COUNT 16.3 10^3/uL (4.0-10.0)
[2024-11-11 11:52] LABS: ERYTHROCYTE SEDIMENTATION RATE 15 mm/hr (0-30)
[2024-11-11 12:17] LABS: ALBUMIN 3.5 G/DL (3.2-5.2); ALKALINE PHOSPHATASE 76 U/L (35-104); ALT/SGPT 41 U/L (7.0-40); AST/SGOT 14 U/L (<34); BILIRUBIN,TOTAL 0.4 MG/DL (0.3-1.2); BLOOD UREA NITROGEN 25 MG/DL (9-23); C REACTIVE PROTEIN QUANTITATIV < 0.50 MG/DL (<1.0); CALCIUM LEVEL 8.6 MG/DL (8.5-10.1); CARBON DIOXIDE LEVEL 29 MMOL/L (20-31); CHLORIDE LEVEL 102 MMOL/L (98-107); GLOMERULAR FILTRATION RATE 85.4 (>51); GLUCOSE, FASTING 108 MG/DL (60-100); SODIUM LEVEL 138 MMOL/L (136-145); TOTAL PROTEIN 6.4 G/DL (5.7-8.2)
[2024-11-11] MEDS ORDERED: ISOVUE-370 76% 100ML VIAL As Ordered ONE (13:05)
[2024-11-11 14:12] VITALS: O2SAT 98
[2024-11-11 14:45] VITALS: BP 120/70
== END 2024-11-11 14:54 | disposition home or self-care (01) ==
LOC: M ED 10:27
DX: M79.604 Pain in right leg (principal); Z79.1 Long term (current) use of non-steroidal anti-inflammatories (NSAID); Z79.2 Long term (current) use of antibiotics; Z79.899 Other long term (current) drug therapy; Z79.52 Long term (current) use of systemic steroids
CPT/HCPCS: 36415; 73701; 74177; 80053; 83605; 85025; 85652; 86140; 87040; 99284; Q9967

== ENCOUNTER → 2025-06-16 | Outpatient (REF) | payer OTHER ==
[~2025-06-16] MED LIST changes: +ACET-907 PO; +ALEV220T22 PO; +GABA-1490; -IBUP-1022 PO; +IBUP600T42 PO; +OXYC1TAB23; +PENI500T; +TIZA10TA
== END ==
LOC: M SFHCWAGY 17:44
PROVIDERS: ATTEND Advanced Practice Midwife
DX: Z12.4 Encounter for screening for malignant neoplasm of cervix (principal)
CPT/HCPCS: 87624; G0123

== ENCOUNTER → 2025-06-16 | Outpatient (CLI) | payer OTHER | LOC: M WHC 15:40 | PROVIDERS: ATTEND Advanced Practice Midwife | DX: Z12.31 Encounter for screening mammogram for malignant neoplasm of breast (principal); R92.323 Mammographic fibroglandular density, bilateral breasts ==